=== PATIENT | female | born 1985 | race Caucasian/White ===

== ENCOUNTER 2018-01-06 10:00 | Outpatient (CLI) | payer OTHER | END 2018-01-06 10:12 | disposition home or self-care (01) | LOC: LAB 10:00 | DX: B35.1 Tinea unguium (principal) ==

== ENCOUNTER 2019-01-28 10:21 | Outpatient (CLI) | payer OTHER | END 2019-01-28 10:41 | disposition home or self-care (01) | LOC: LAB 10:21 | DX: Z13.0 Encounter for screening for diseases of the blood and blood-forming organs and certain disorders involving the immune mechanism (principal) ==

== ENCOUNTER → 2021-05-17 09:11 | Outpatient (CLI) | payer OTHER | END | disposition home or self-care (01) | LOC: LAB 09:11 | PROVIDERS: ATTEND Specialist | DX: I10 Essential (primary) hypertension (principal); M62.838 Other muscle spasm; M94.0 Chondrocostal junction syndrome [Tietze]; Z13.1 Encounter for screening for diabetes mellitus; Z13.220 Encounter for screening for lipoid disorders ==

== ENCOUNTER 2022-10-15 10:42 | Outpatient (CLI) | payer OTHER | END 2022-10-15 10:45 | disposition home or self-care (01) | LOC: LAB 10:42 | PROVIDERS: ATTEND Specialist | DX: J32.9 Chronic sinusitis, unspecified (principal); Z13.220 Encounter for screening for lipoid disorders; Z13.1 Encounter for screening for diabetes mellitus; Z13.29 Encounter for screening for other suspected endocrine disorder ==

== ENCOUNTER 2022-10-22 08:38 | Outpatient (CLI) | payer OTHER | END 2022-10-22 08:55 | disposition home or self-care (01) | LOC: TOM 08:38 | PROVIDERS: ATTEND Specialist | DX: R51.0 Headache with orthostatic component, not elsewhere classified (principal); J32.9 Chronic sinusitis, unspecified; Z13.220 Encounter for screening for lipoid disorders; Z13.1 Encounter for screening for diabetes mellitus; Z13.29 Encounter for screening for other suspected endocrine disorder ==